=== PATIENT | male | born 1960 | race Caucasian/White ===

== ENCOUNTER 2019-03-08 14:37 | Emergency (ER) | payer MEDICARE ==
[2019-03-08] MEDS ORDERED: Lidocaine 2% with EPINEPHrine 1:100,000 20 ML MDV INJECT ONE ×2 (15:00→15:15)
[2019-03-08] MEDS ORDERED: Lidocaine 1% with EPINEPHrine 1:100,000 20 ML MDV ONE (15:23)
[2019-03-08] MEDS ORDERED: Take Home: Sulfamethoxazole/Trimethoprim 800-160 MG Tab, 2 Tab Pack PO ONE (15:48)
--- NOTE | 2019-03-08 15:49 | EDM.PDOC ---
ED HPI GENERAL MEDICAL PROBLEM - General Time Seen by Provider: 03/08/19 15:10 Source of Information: Reports: Patient, Family History Limitations: Reports: No Limitations - History of Present Illness INITIAL COMMENTS - FREE TEXT/NARRATIVE: The patient is a diabetic smoker. He has had previous insect bites about the head. He recently started on amoxicillin. He comes in today with a large localized abscess about the occipital area on the left. The pressure of the pus has caused him secondary discomfort. I did do a incision and drainage. Culture done of the wound. I then packed this with quarter-inch packing. I also recommended Bactrim. His discomfort was much better afterwards. I did also tell him to continue to manage his diabetes best she can and also consider to cut back on and quit with smoking. Onset: Gradual Duration: Getting Worse Severity: Moderate Improves with: Reports: None Worsens with: Reports: Movement Context: Reports: Other (Trauma from insect) Associated Symptoms: Reports: No Other Symptoms Treatments CIVIL ENGINEER: Reports: Other (see below) (ice therapy seems to help some) Left Head Pain Score (Numeric/FACES): 10 - Related Data Allergies Allergy/AdvReac Type Severity Reaction Status Date / Time bee venom protein (honey bee) Allergy Anaphylactic Verified 03/08/19 16:32 Shock Home Meds: Home Meds Aspirin [Halfprin] 81 mg PO DAILY 03/08/19 [History] Escitalopram [Lexapro] 1 tab PO DAILY 03/08/19 [History] Ibuprofen 800 mg PO BID PRN 03/08/19 [History] Sulfamethoxazole/Trimethoprim [Bactrim Ds Tablet] 1 each PO DAILY #10 tablet 10/18 [Rx] atorvaSTATin [Lipitor] 40 mg PO BEDTIME 03/08/19 [History] buPROPion [Wellbutrin SR] 1 tab PO DAILY 03/08/19 [History] metFORMIN [Glucophage XR] 1,000 mg PO DAILY 03/08/19 [History] tiZANidine [Zanaflex] 1 tab PO Q8H 03/08/19 [History] valACYclovir HCl [valACYclovir] 1 tab PO DAILY 03/08/19 [History] Past Medical History - Past Health History Medical/Surgical History: Denies Medical/Surgical History Social & Family History - Tobacco Use Smoking Status *Q: Current Every Day Smoker ED ROS GENERAL - Review of Systems Review Of Systems: Comprehensive ROS is negative, except as noted in HPI. ED EXAM, SKIN/RASH Exam: See Below Exam Limited By: No Limitations General Appearance: Alert, Moderate Distress Head: Other (Large local abscess about the left occipital and this is about 3-1/ 2-4 1/2 cm in dimension. Induration.) Respiratory/Chest: No Respiratory Distress, Lungs Clear, Normal Breath Sounds, No Accessory Muscle Use, Chest Non-Tender Cardiovascular: Normal Peripheral Pulses, Regular Rate, Rhythm, No Edema, No Gallop, No JVD, No Murmur, No Rub ED SKIN PROCEDURES - I&D Skin Prep: Providone-Iodine (Betadine) Local Anesthesia: Lidocaine: 1% with EPI Local Anesthetic Volume: 5cc Area Incised With: 11 Blade Drainage: Purulent, Moderate Amount Probed to Break Up Loculations: Yes Packed With: 1/4 in. Iodoform Sterile Dressinx4(s) Complications: No Progress/Comments: Culture done. Used headlamp and surgical loupes Course - Vital Signs Last Recorded V/S: Last Vital Signs Temp 36.2 C 03/08/19 15:00 Pulse 109 H 03/08/19 15:00 Resp 16 03/08/19 15:00 BP 130/69 03/08/19 15:00 Pulse Ox 91 L 03/08/19 15:00 - Orders/Labs/Meds Orders: Active Orders 24 hr Category Date Time Status CULTURE WOUND [RM] Stat Lab 03/08/19 15:28 Received Meds: Medications Discontinued Medications Generic Name Dose Route Start Last Admin Trade Name Sukhjinder PRN Reason Stop Dose Admin Lidocaine/Epinephrine 20 ml 03/08/19 15:00 03/08/19 16:15 Xylocaine 2% With Epinephrine 1:100,000 INJECT 03/08/19 15:01 Not Given ONETIME ONE Lidocaine/Epinephrine 20 ml 03/08/19 15:15 03/08/19 16:15 Xylocaine 2% With Epinephrine 1:100,000 INJECT 03/08/19 15:16 Not Given ONETIME ONE Lidocaine/Epinephrine Confirm 03/08/19 15:23 03/08/19 16:00 Xylocaine 1% With Epinephrine 1:100,000 Administered 03/08/19 15:24 20 ml Dose Administration 20 ml .ROUTE .STK-MED ONE Trimethoprim/Sulfamethoxazole 2 packet 03/08/19 15:48 03/08/19 16:12 Take Home: Sulfameth/Trimet 800-160mg, 2 Pack PO 03/08/19 15:49 2 packet ONETIME ONE Administration Departure - Departure Time of Disposition: 15:43 Disposition: DC/Tfer to [facility] Condition: Good Clinical Impression: Scalp abscess - Discharge Information *PRESCRIPTION DRUG MONITORING PROGRAM REVIEWED*: Not Applicable *COPY OF PRESCRIPTION DRUG MONITORING REPORT IN PATIENT TERRY: Not Applicable Prescriptions: Sulfamethoxazole/Trimethoprim [Bactrim Ds Tablet] 1 each PO DAILY #10 tablet Instructions: Wound Care, Adult Referrals: PCP,None [Primary Care Provider] - Additional Instructions: Take the bandage off in 2 days. Keep clean. Irrigate with soap and water. Take antibiotics as recommended. - My Orders Last 24 Hours: My Active Orders 03/08/19 15:28 CULTURE WOUND [RM] Stat - Assessment/Plan Last 24 Hours: My Active Orders 03/08/19 15:28 CULTURE WOUND [RM] Stat
== END 2019-03-08 16:14 | disposition home or self-care (01) ==
LOC: VM.ED 14:37
DX: L02.811 Cutaneous abscess of head [any part, except face] (principal); E11.9 Type 2 diabetes mellitus without complications; F17.200 Nicotine dependence, unspecified, uncomplicated; Z79.82 Long term (current) use of aspirin; Z79.51 Long term (current) use of inhaled steroids; Z91.030 Bee allergy status
CPT/HCPCS: 10061; 87070; 87077; 99283-GF; 99284-25; A9270-GY

== ENCOUNTER 2022-07-19 21:05 | Emergency (ER) | payer OTHER ==
[2022-07-19] MEDS: Oxymetazoline 0.05% Nasal Spray 30 ML Bottle NAS ONE (21:30)
== END 2022-07-19 21:42 | disposition home or self-care (01) ==
LOC: VM.ED 21:05
DX: R04.0 Epistaxis (principal); E78.00 Pure hypercholesterolemia, unspecified; I10 Essential (primary) hypertension; E11.9 Type 2 diabetes mellitus without complications; Z91.030 Bee allergy status; Z79.82 Long term (current) use of aspirin; Z79.84 Long term (current) use of oral hypoglycemic drugs; Z72.0 Tobacco use; Z79.899 Other long term (current) drug therapy
CPT/HCPCS: 30901; 99283

== ENCOUNTER 2023-01-01 23:24 | Emergency (ER) | payer OTHER ==
[2023-01-01] MEDS ORDERED: Lidocaine 1% 10 ML MDV INJECT ONE (23:25)
== END 2023-01-01 23:55 | disposition home or self-care (01) ==
LOC: VM.ED 23:24
DX: S91.205A Unspecified open wound of left lesser toe(s) with damage to nail, initial encounter (principal); B35.1 Tinea unguium; I10 Essential (primary) hypertension; E11.9 Type 2 diabetes mellitus without complications; E78.00 Pure hypercholesterolemia, unspecified; Z79.899 Other long term (current) drug therapy; Z79.82 Long term (current) use of aspirin; Z91.030 Bee allergy status; Z79.4 Long term (current) use of insulin; X58.XXXA Exposure to other specified factors, initial encounter; Z79.84 Long term (current) use of oral hypoglycemic drugs
CPT/HCPCS: 11730; 99283; J3490

== ENCOUNTER 2024-03-12 06:10 | Emergency (ER) | payer OTHER ==
[2024-03-12 06:39] LABS: BASOPHILS PERCENT AUTO 0.2 % (0.2-1.2); EOSINOPHILS ABSOLUTE AUTO 0.1 x10^3/uL (0.0-0.5); EOSINOPHILS PERCENT AUTO 0.5 % (0.0-4.0); HEMATOCRIT 35.1 % (40.0-52.0); HEMOGLOBIN 12.1 g/dL (14.0-18.0); IMMATURE GRAN ABSOLUTE AUTO 0.02 x10^3/uL (0.00-0.07); LYMPHOCYTES ABSOLUTE AUTO 1.4 x10^3/uL (1.0-4.8); LYMPHOCYTES PERCENT AUTO 10.8 % (25.0-50.0); MEAN CORPUSCULAR HEMOGLOBIN 28.5 pg (26.0-32.0); MEAN CORPUSCULAR HGB CONC 34.5 g/dL (32.0-36.0); MEAN CORPUSCULAR VOLUME 82.6 fL (78.0-93.0); MONOCYTES ABSOLUTE AUTO 0.9 x10^3/uL (0.0-0.8); MONOCYTES PERCENT AUTO 7.1 % (2.0-11.0); NEUTROPHILS ABSOLUTE AUTO 10.6 x10^3/uL (1.8-7.7); NEUTROPHILS PERCENT AUTO 81.2 % (50.0-80.0); PLATELET COUNT,PLT 253 x10^3/uL (130-400); RED BLOOD CELL COUNT 4.25 x10^6/uL (4.5-6.0)
[2024-03-12 07:02] LABS: A/G RATIO 0.39; ALANINE AMINOTRANSFERASE,ALT 15 U/L (16-63); ALBUMIN 1.9 g/dL (3.4-5.0); ALKALINE PHOSPHATASE 165 U/L (46-116); ASPARTATE AMNIOTRANSFERASE,AST 12 U/L (15-37); BILIRUBIN TOTAL 0.6 mg/dL (0.2-1.0); BLOOD UREA NITROGEN,BUN 16 mg/dL (7-18); CALCIUM 9.3 mg/dL (8.5-10.1); CARBON DIOXIDE,CO2 32 mmol/L (21-32); CHLORIDE,CL 95 mmol/L (98-107); CREATININE 1.1 mg/dL (0.70-1.30); GLUCOSE RANDOM 283 mg/dL (70-99); POTASSIUM,K 4.5 mmol/L (3.5-5.1); PROTEIN TOTAL,TP 6.8 g/dL (6.4-8.2); SODIUM,NA 132 mmol/L (136-145)
[2024-03-12 07:05] LABS: ANION GAP 9.5 mmol/L (5-15); ESTIMATED GFR 76 mL/min (>=60)
== END 2024-03-12 09:22 | disposition home or self-care (01) ==
LOC: VM.ED 06:10
DX: R42 Dizziness and giddiness (principal); I10 Essential (primary) hypertension; E78.00 Pure hypercholesterolemia, unspecified; E11.9 Type 2 diabetes mellitus without complications; F17.210 Nicotine dependence, cigarettes, uncomplicated; Z79.899 Other long term (current) drug therapy; Z79.4 Long term (current) use of insulin; Z79.82 Long term (current) use of aspirin; Z91.030 Bee allergy status
CPT/HCPCS: 70450; 80053; 84484; 85025; 93005; 93010; 99284